=== PATIENT | female | born 1995 | race Caucasian/White ===

== ENCOUNTER → 2020-02-17 15:34 | Outpatient (CLI) | payer OTHER, BC, SELFPAY ==
--- NOTE | ~2020-02-17 | US_ITS ---
EXAMINATION: US pelvic complete w TV DATE: 02/17/2020 15:58 INDICATION: Left lower quadrant abdominal pain. Irregular periods. TECHNIQUE: Multiple transabdominal and endovaginal sonographic images of the pelvis were obtained. COMPARISON: None. FINDINGS: The uterus measures 6.8 x 3.7 x 3.6 cm. The endometrial complex measures 10 mm in thickness. The rig ht ovary measures 1.9 x 1.4 x 1.5 cm. The left ovary measures 3.1 x 1.9 x 2.4 cm. Vascular flow at diana th ovaries. There is no free fluid in the pelvis. IMPRESSION: 1. Normal pelvic ultrasound. Reviewed, dictated and finalized at location H. RAISER
== END ==
PROVIDERS: Visit Provider Obstetrics & Gynecology
DX: R10.2 Pelvic and perineal pain (principal)
CPT/HCPCS: 76830; 76856

== ENCOUNTER 2020-12-19 15:58 | Outpatient (CLI) | payer OTHER, BC, SELFPAY ==
--- NOTE | ~2020-12-19 | US_ITS ---
EXAMINATION: US venous doppler LE RT EXAM DATE: 12/19/2020 16:47 INDICATION: Right leg localized edema/swelling. . TECHNIQUE: Multiple grayscale, color flow and Doppler images of the right lower extremity deep venous system were obtained and reviewed. There is no prior study for comparison. FINDINGS: The right common femoral, femoral and profunda veins demonstrate normal color flow, respira tory variation, augmentation and compressibility. Compressibility, color flow confirmed within the r ight popliteal, posterior tibial, peroneal, and greater saphenous veins. IMPRESSION: 1. No right lower extremity deep venous thrombosis. Reviewed, dictated and finalized at location B.
== END 2020-12-19 15:59 | disposition home or self-care (01) ==
LOC: ANHIMG 16:04
PROVIDERS: PCP Family Medicine Sports Medicine; Visit Provider Obstetrics & Gynecology
DX: M79.89 Other specified soft tissue disorders (principal)
CPT/HCPCS: 93971

== ENCOUNTER 2021-01-04 20:25 | Outpatient (CLI) | payer OTHER, BC, SELFPAY ==
[2021-01-04 20:45] VITALS: BP 149/90; PULSE 94
[2021-01-04 21:00] VITALS: BP 130/84; PULSE 84
[2021-01-04 21:01] LABS: Basophils Percent Auto 0.3 % (0.2-1.2); Eosinophils Percent Auto 0.3 % (0-4.4); Hematocrit 33.9 % (37.0-47.0); Hemoglobin 11.2 g/dL (12.0-15.0); Immature Granulocyte Absolute 0.06 K/mm3 (0.00-0.031); Immature Granulocyte Percent A 0.7 % (0-0.5); Lymphocytes Absolute Auto 2.35 K/mm3 (0.9-3.2); Lymphocytes Percent Auto 26.9 % (18.3-44.2); Mean Corpuscular Hemoglobin 30.9 pg (26-34); Mean Corpuscular Volume 93.4 fl (80-100); Mean Platelet Volume 9.7 fl (7.4-10.4); Monocytes Absolute Auto 0.7 K/mm3 (0.1-0.6); Monocytes Percent Auto 7.4 % (2.6-8.5); Neutrophils Absolute Auto 5.6 K/mm3 (1.3-6.7); Neutrophils Percent Auto 64.4 % (45.5-73.1); Platelet Count Result 271 k/mm3 (150-375); Red Blood Count 3.63 M/mm3 (4.2-5.4); Red Cell Distribution Width 13.2 % (11.5-14.5); White Blood Count 8.7 K/mm3 (4.5-10.0)
[2021-01-04 21:06] LABS: Add Urine Microscopic? YES; Appearance Urine Cloudy (Clear); Bacteria Urine Trace /hpf; Bilirubin Urine Negative (Negative); Blood Urine Negative (Negative); Color Urine Straw (Yellow); Glucose Urine UA Negative (Negative); Ketones Urine Negative (Negative); Leukocyte Esterase Ur Negative LEU/UL (Negative); Mucus Urine Rare /lpf; Nitrate Urine Negative (Negative); Protein Urine Negative (Negative); RBC Urine 0-2 /hpf (0-2); Squamous Epithelial Cell Urine Few /hpf (Few); Urobilinogen Urine Negative mg/dL (<2.0); WBC Urine 0-3 /hpf
[2021-01-04 21:15] VITALS: BP 131/79; PULSE 82
[2021-01-04 21:15] LABS: Creatinine Urine 69.3 mg/dL; Total Protein Urine Random 16 mg/dL; Ur Ttl Prot Creatinine Ratio 0.23 mg/mg (0-0.20)
[2021-01-04 21:16] LABS: Alanine Aminotransferase 19 U/L (4-35); Albumin Level 3.8 g/dL (3.5-5.1); Alkaline Phosphatase 120 U/L (38-126); Anion Gap 9 mmol/L (8-16); Aspartate Amino Transferase 20 U/L (14-36); Bilirubin,Total 0.3 mg/dL (0.2-1.3); Blood Urea Nitrogen 10 mg/dL (7-17); Calcium 9.4 mg/dL (8.4-10.2); Carbon Dioxide 19 mmol/L (22-30); Chloride 107 mmol/L (98-107); Estimated Glomerular Filt Rate > 60; Glucose 85 mg/dL (65-110); Potassium 3.9 mmol/L (3.4-5.0); Sodium 135 mmol/L (137-145); Uric Acid 5.6 mg/dL (2.5-7.5)
== END 2021-01-04 21:30 | disposition home or self-care (01) ==
LOC: ANHOBOP 20:30 → ANHOBPP 20:31
PROVIDERS: Obstetrics & Gynecology; PCP Family Medicine Sports Medicine; Visit Provider Obstetrics & Gynecology
DX: O13.9 Gestational [pregnancy-induced] hypertension without significant proteinuria, unspecified trimester (principal)
CPT/HCPCS: 36415; 59025; 80053; 81001; 82570; 84156; 84550; 85025; 99199

== ENCOUNTER 2021-01-11 10:25 | Outpatient (RCR) | payer OTHER, BC, SELFPAY ==
[2020-11-28 17:23] VITALS: BP 124/74; PULSE 86
--- NOTE | 2020-11-28 18:26 | PC.NURSE ---
BPP 11/11.
[2020-12-07 11:56] VITALS: BP 116/67; PULSE 85
[2020-12-14 12:15] VITALS: BP 108/72; PULSE 87
[2020-12-21 12:39] VITALS: BP 107/54; PULSE 81
[2020-12-28 10:50] VITALS: BP 128/77; PULSE 76
--- NOTE | 2021-01-04 12:35 | PC.NURSE ---
Dr. Majano called regarding pt initial blood pressure and follow up blood pressures that were within normal limits. Pt given PIH handout and pt advised to return to OB or call Dr. Majano if any problems.
[2021-01-06 03:52] VITALS: BP 117/70; PULSE 75
--- NOTE | ~2021-01-11 | US_ITS ---
US OB BPP wo non-stress DATE: 11/28/2020 18:21 INDICATION: Small for gestational age. Elevated BMI TECHNIQUE: Real-time imaging and Doppler analysis COMPARISON: None FINDINGS: Live milner intrauterine gestation, fetus in longitudinal lie, vertex presentation. Feta l heart rate of 136 bpm. Posterior placenta. Subjectively normal amount of amniotic fluid BIOPHYSICAL PROFILE reported by oxygen equipment technician: breathin out of 2 movement: 2 out of 2 tone: 2 out of 2 Amniotic fluid pocket: 2 out of 2 Total score: 8 out of 8 IMPRESSION: Normal biophysical profile score of 8 out of 8 Reviewed, dictated and finalized at Location [facility]. Reviewed, dictated and finalized at location A.
[2021-01-11 11:09] VITALS: BP 144/83; PULSE 99
== END 2021-02-26 23:59 | disposition home or self-care (01) ==
LOC: ANHOBOP 10:25
PROVIDERS: Visit Provider Obstetrics & Gynecology
DX: O36.5930 Maternal care for other known or suspected poor fetal growth, third trimester, not applicable or unspecified (principal); O26.03 Excessive weight gain in pregnancy, third trimester; Z3A.32 32 weeks gestation of pregnancy
CPT/HCPCS: 59025; 76819

== ENCOUNTER 2021-01-11 11:45 | Inpatient (IN) | payer OTHER, BC, SELFPAY ==
[2021-01-11] VITALS (12 sets, daily range): BP systolic 111–139; BP diastolic 61–100; PULSE 72–101; TEMP 36.7–37.1; BMI 43.9
[2021-01-11 13:15] LABS: Basophils Percent Auto 0.4 % (0.2-1.2); Eosinophils Percent Auto 0.4 % (0-4.4); Hematocrit 36.3 % (37.0-47.0); Hemoglobin 12.2 g/dL (12.0-15.0); Immature Granulocyte Absolute 0.05 K/mm3 (0.00-0.031); Immature Granulocyte Percent A 0.6 % (0-0.5); Lymphocytes Absolute Auto 1.82 K/mm3 (0.9-3.2); Lymphocytes Percent Auto 22.2 % (18.3-44.2); Mean Corpuscular HGB Conc 33.6 g/dl (32-36); Mean Corpuscular Hemoglobin 31.3 pg (26-34); Mean Corpuscular Volume 93.1 fl (80-100); Mean Platelet Volume 9.7 fl (7.4-10.4); Monocytes Absolute Auto 0.5 K/mm3 (0.1-0.6); Monocytes Percent Auto 6.3 % (2.6-8.5); Neutrophils Absolute Auto 5.8 K/mm3 (1.3-6.7); Neutrophils Percent Auto 70.1 % (45.5-73.1); Platelet Count Result 251 k/mm3 (150-375); Red Cell Distribution Width 13.3 % (11.5-14.5); White Blood Count 8.2 K/mm3 (4.5-10.0)
[2021-01-11 13:28] LABS: Alanine Aminotransferase 18 U/L (4-35); Albumin Level 3.7 g/dL (3.5-5.1); Alkaline Phosphatase 140 U/L (38-126); Anion Gap 7 mmol/L (8-16); Aspartate Amino Transferase 22 U/L (14-36); Bilirubin,Total 0.2 mg/dL (0.2-1.3); Blood Urea Nitrogen 7 mg/dL (7-17); Calcium 8.9 mg/dL (8.4-10.2); Carbon Dioxide 20 mmol/L (22-30); Chloride 109 mmol/L (98-107); Estimated Glomerular Filt Rate > 60; Glucose 77 mg/dL (65-110); Sodium 136 mmol/L (137-145)
[2021-01-11] MEDS: DINOPROSTONE 10 MG VAG INSERT VAGINAL (14:10)
--- NOTE | 2021-01-11 14:20 | LDADM ---
This patient, Yesika Camara, was admitted to Labor/Delivery/Recovery 109 on 01/11/21 at 11:45. Plans for labor, pain management and were discussed with patient. Patient/family oriented to hospital policies and general routines including ID bracelet, bed and alarms, visiting hours, pain management, procedures, bathroom and other care routines, personal items, smoking policy, room service/diet and guest tray routines, security routines, and visiting hours. Patient/Family are encouraged to report perceived risks to care and to ask questions if they do not understand what they are told or what they should do. See OBIX for further documentation.
--- NOTE | 2021-01-11 15:03 | PM.IMHP ---
H&P: HPI History of Present Illness Date/Time: 01/11/21 14:50 Yesika is a 25yo @ 38.4wks (LEN 01/21/21) who presents for IOL due to newly diagnosed gestational hypertension. She has been undergoing ANT due to hypothyroidism/obesity and the last two weeks has had mild range BPs. She denies HEADLEY, vision changes, CP, SOB. She reports good movement. No ctx, vb, or LOF. Her is complicated by: - Hypothyroidism on levothyroxine 25mcg - Gestational hypertension; has been taking ASA 81mg daily - PCOS on metformin - Elevated glucola, normal 3hr OGTT - Obesity; BMI 44 - Inadequate weight gain in due to NVOP - Anxiety and depression - Mild anemia on iron daily - CMV non-immune Chief Complaint: elevated blood pressure Review of Systems Review of Systems: All systems reviewed & are unremarkable except as noted in HPI and below (HPI) PMFSH Family History Family History Mother Hypercholesteremia Hypertension Social History Social History Smoking status: Never smoker Second hand tobacco smoke exposure: No Substance use: never Spiritual care concerns: No Meds Home Medications and Allergies Home Medications Medication Instructions Recorded Confirmed Type PNV cmb#95-ferrous fumarate-FA 1 tablet PO DAILY 12/22/20 12/22/20 History [] aspirin 81 mg PO DAILY 12/22/20 12/22/20 History levothyroxine [Synthroid] 25 mcg PO DAILY 12/22/20 12/22/20 History metformin 1,000 mg PO DAILY 12/22/20 12/22/20 History Allergies Allergy/AdvReac Type Severity Reaction Status Date / Time No Known Allergies Allergy Verified 12/22/20 14:29 Vital Signs Vital Signs - 24 hr 01/11/21 12:52 01/11/21 13:01 01/11/21 13:31 Pulse Rate 101 H 90 82 Blood Pressure 139/94 H 134/85 136/85 01/11/21 14:01 01/11/21 14:31 Pulse Rate 92 77 Blood Pressure 111/78 128/75 Exam Const: General: cooperative, comfortable and no acute distress Nutritional Appearance: obese Resp: Effort & Inspection: normal respiratory effort Cardio: Rate: regular rate GI: Inspection: normal to inspection GI Palp: No abdominal tenderness and Yes Soft to palpation : Other: FHT's: 130's/ mod patrick/ + accels/ no decels- cat 1 [place]: irritability Cervix:FT/50/-3 Membranes: intact Presentation: cephalic Skin: General skin exam: normal color Neuro: General: patient oriented x3 Extrem: General: normal to inspection Psych: Appearance: grossly normal Affect: normal affect Attitude: cooperative H&P: Results Labs Labs: Short CBC 01/11/21 Range/Units 13:04 WBC 8.2 (4.5-10.0) K/mm3 Hgb 12.2 (12.0-15.0) g/dL Hct 36.3 L (37.0-47.0) % Plt Count 251 (150-375) k/mm3 BMP 01/11/21 13:04 Sodium 136 L Potassium 4.0 Chloride 109 H Carbon Dioxide 20 L BUN 7 Creatinine 0.60 L Glucose 77 Calcium 8.9 Liver Function 01/11/21 Range/Units 13:04 Total Bilirubin 0.2 (0.2-1.3) mg/dL AST 22 (14-36) U/L ALT 18 (4-35) U/L Alkaline Phosphatase 140 H (38-126) U/L Albumin 3.7 (3.5-5.1) g/dL Assessment and Plan Assessment and plan (1) Gestational hypertension affecting first : Code(s): O13.9 - Gestational [-induced] hypertension without significant proteinuria, unspecified trimester Status: Acute Additional Plan - Admit to L&D for IOL due to GHTN after 37wga - Cervidil now - AROM/Pitocin in AM - Continuous monitoring; currently reassuring - Anesthesia consult PRN pain - GBS negative
--- NOTE | 2021-01-11 15:04 | WPDHPUPDATE1 ---
History and Physical Update Update Date/Time: 01/11/21 15:04 History and Physical has been reviewed, including an updated exam of the patient. There are NO changes in the patient's condition. Risks, benefits, and alternatives have been discussed and questions answered. Patient agrees to proceed with procedure.
--- NOTE | 2021-01-11 17:34 | WPDANESEPP ---
Anes - Eval Pre Procedure Procedure: Labor epidural Date/Time: 01/11/21 17:34 Surgeon: Melecio Preop Diagnosis: Abd pain with contractions Pre Op Diagnosis: Induction of Labor Patient Data Age: 25 Gender: F Height: 1.7 m Weight: 127.3 kg Last Vital Signs Pulse 81 01/11/21 16:31 BP 117/63 01/11/21 16:31 Allergies Allergy/AdvReac Type Severity Reaction Status Date / Time No Known Allergies Allergy Verified 12/22/20 14:29 Home Medications Medication Instructions Recorded Confirmed Type PNV cmb#95-ferrous fumarate-FA 1 tablet PO DAILY 12/22/20 12/22/20 History [] aspirin 81 mg PO DAILY 12/22/20 12/22/20 History levothyroxine [Synthroid] 25 mcg PO DAILY 12/22/20 12/22/20 History metformin 1,000 mg PO DAILY 12/22/20 12/22/20 History Laboratory Tests 01/11/21 01/11/21 01/11/21 13:04 13:04 13:04 WBC 8.2 K/mm3 K/mm3 (4.5-10.0) RBC 3.90 M/mm3 L M/mm3 (4.2-5.4) Hgb 12.2 g/dL g/dL (12.0-15.0) Hct 36.3 % L % (37.0-47.0) MCV 93.1 fl fl (80-100) MCH 31.3 pg pg (26-34) MCHC 33.6 g/dl g/dl (32-36) RDW 13.3 % % (11.5-14.5) Plt Count 251 k/mm3 k/mm3 (150-375) MPV 9.7 fl fl (7.4-10.4) Immature Gran % (Auto) 0.6 % H % (0-0.5) Neut % (Auto) 70.1 % % (45.5-73.1) Lymph % (Auto) 22.2 % % (18.3-44.2) [place] % (Auto) 6.3 % % (2.6-8.5) Eos % (Auto) 0.4 % % (0-4.4) Baso % (Auto) 0.4 % % (0.2-1.2) Lymph # (Auto) 1.82 K/mm3 K/mm3 (0.9-3.2) [place] # (Auto) 0.5 K/mm3 K/mm3 (0.1-0.6) Eos # (Auto) 0.0 K/mm3 K/mm3 (0-0.3) Baso # (Auto) 0.0 K/mm3 K/mm3 (0.0-0.1) Abs Immat Gran (auto) 0.05 K/mm3 H K/mm3 (0.00-0.031) Absolute Neuts (auto) 5.8 K/mm3 K/mm3 (1.3-6.7) Absolute Nucleated RBC 0.0 K/mm3 K/mm3 (0.0-0.012) Nucleated RBC % 0.0 % % (0.0-0.2) Sodium Potassium Chloride Carbon Dioxide Anion Gap BUN Creatinine Estim Creat Clear Calc Estimated GFR Glucose Calcium Total Bilirubin AST ALT Alkaline Phosphatase Total Protein Albumin RPR Pending Blood Type A Positive Antibody Screen Negative 01/11/21 13:04 WBC RBC Hgb Hct MCV MCH MCHC RDW Plt Count MPV Immature Gran % (Auto) Neut % (Auto) Lymph % (Auto) [place] % (Auto) Eos % (Auto) Baso % (Auto) Lymph # (Auto) [place] # (Auto) Eos # (Auto) Baso # (Auto) Abs Immat Gran (auto) Absolute Neuts (auto) Absolute Nucleated RBC Nucleated RBC % Sodium 136 mmol/L L mmol/L (137-145) Potassium 4.0 mmol/L mmol/L (3.4-5.0) Chloride 109 mmol/L H mmol/L (98-107) Carbon Dioxide 20 mmol/L L mmol/L (22-30) Anion Gap 7 mmol/L L mmol/L (8-16) BUN 7 mg/dL mg/dL (7-17) Creatinine 0.60 mg/dL L mg/dL (0.7-1.0) Estim Creat Clear Calc Not Reportable Estimated GFR > 60 (59 - ) Glucose 77 mg/dL mg/dL (65-110) Calcium 8.9 mg/dL mg/dL (8.4-10.2) Total Bilirubin 0.2 mg/dL mg/dL (0.2-1.3) AST 22 U/L U/L (14-36) ALT 18 U/L U/L (4-35) Alkaline Phosphatase 140 U/L H U/L (38-126) Total Protein 7.0 g/dL g/dL (6.3-8.2) Albumin 3.7 g/dL g/dL (3.5-5.1) RPR Blood Type Antibody Screen Patient hx anesthesia problems: none Family hx anesthesia problems: none Results Review: All pre-operative results and documents have been reviewed as part of the pre-operative evaluation. COUNTS INCLUDE 234 BEDS AT THE [facility] Past Medical History Medical His
[2021-01-12] VITALS (266 sets, daily range): BP systolic 90–183; BP diastolic 39–152; PULSE 56–251; TEMP 36.3–37.8; O2SAT 72–100
[2021-01-12] MEDS: LACTATED RINGERS 1,000 ML 125 ML IV CONT ×4 (04:46→20:41)
--- NOTE | 2021-01-12 09:14 | PM.OBPNLAB ---
Pain Control Date/time seen: 01/12/21 09:14 Pain control: epidural Pelvic Exam Dilation (cm): 2 Effacement (%): 50 station: -2 Amniotic membrane status: Ruptured (AROM, thick mec @ 0905) Contractions Monitor mode: Internal Contraction frequency: 2 (-3) Contraction pattern: Regular Contraction intensity: Moderate Intrauterine tone measurement: 40 Status status: Category ll Comments: overnihgt, had occasional late decelerations; occasional episodes of minimal variability (not together)-- but there was concern for tachysystole w/ the cervidil IUPC placed on this exam and pt jayla adequately Assessment and Plan Assessment: induction ongoing Plan: continuous present management Comments: - monitoring heart tones closely - low thresh hold for and pt aware - currently contractions appear to be adequate with the IUPC; pitocin has not been started-- if contractions space out and FHT reassuring, will start low dose pitocin
[2021-01-12] MEDS: SODIUM CHLORIDE 0.9% IV 300 ML 600 ML I-UTERINE (09:43)
[2021-01-12] MEDS: OXYTOCIN 30 UNITS/NS 500 ML 30 UNITS/500 ML BAG IV CONT (12:20)
--- NOTE | 2021-01-12 12:22 | PC.NURSE ---
Dr. Majano confirmed going up by 1 -2 m/u as needed to achieved adequate MVU's
--- NOTE | 2021-01-12 19:15 | PM.OBPNLAB ---
Pain Control Date/time seen: 01/12/21 19:15 Pain control: epidural Pelvic Exam Dilation (cm): 6 Effacement (%): 80 station: -2 Amniotic membrane status: Ruptured (AROM, thick mec @ 0905) Contractions Monitor mode: Internal Contraction frequency: 2 Contraction pattern: Regular Contraction intensity: Moderate Status status: Category ll Comments: occasional late, but good variability-- overall reassuring Assessment and Plan Pitocin rate (mU/min): 8 Assessment: active labor Plan: continuous present management
[2021-01-13] VITALS (57 sets, daily range): BP systolic 120–151; BP diastolic 64–93; PULSE 83–126; RESP 16–18; TEMP 35.7–37.5; O2SAT 95–100
--- NOTE | 2021-01-13 01:37 | PM.OBPRVD ---
OB - Delivery Note Procedure Delivery date: 01/13/21 events: Induced HTN and Labor Induction Intrapartal events: Deceleration Induction method: per cervidil protocol Delivery augmentation: rupture of membranes and pitocin Delivery monitor: external FHT and internal uterine Route of delivery: Laceration Description: Perineal - 1st Degree and Labial (left) Delivery repair: vicryl Specimen: Yes Quantitative Blood Loss (ml): 300 Anesthesia type: Epidural Disposition: floor [place] Baby Date of : 01/13/21 Time of : 01:01 Weeks of gestation at delivery: 38 (.6) Infant gender: Male Weight (pounds): 6 Weight (ounces): 13 presentation: vertex position: Right Occiput Anterior Placenta delivery description: Expressed cord vessel description: 3 Vessels, Nuchal Cord (x2), Loose and Delayed Cord Clamping score one minute: 8 score five minutes: 9 Narrative: Yesika progressed to complete dilation with desire to push. She pushed for approximately 1 hour with good maternal effort. She delivered the head over intact perineum. Nuchal cord x2 was noted, but loose and delivered through. The was immediately placed skin to skin with the pediatric nurse was present. He had spontaneous cry. His mouth was bulb suctioned. Delayed cord clamping was performed. The umbilical cord was then clamped and cut. A segment of the cord was collected for cord gases. The remaining cord blood was collected for typing. With Pitocin running and gentle downward traction on the cord, the placenta delivered without complications. Excessive membranes were noted therefore a bimanual massage was performed with a sweep to verify all membranes were removed. Patient was examined and found to have a first-degree perineal laceration extending into the left labia. The perineal laceration was repaired in the normal fashion using 2-0 Vicryl. The labial laceration was also repaired in the normal fashion using 2-0 Vicryl. Good fundal tone and minimal bleeding were noted at the end of the case. Sponge, lap, instrument, and needle counts were correct at the end. Mom and baby were left bonding in the birthing suite in stable condition.
[2021-01-13] MEDS: OXYTOCIN 30 UNITS/NS 500 ML 30 UNITS/500 ML BAG 125 UNITS IV CONT (01:45)
[2021-01-13] MEDS: ACETAMINOPHEN 325 MG TABLET 650 MG PO (04:50)
[2021-01-13] MEDS: LEVOTHYROXINE SODIUM 25 MCG TABLET PO (08:37)
[2021-01-13] MEDS: MULTIVIT/MIN/PREN/FOL AC/IRON TABLET 1 TAB PO (08:37)
[2021-01-13] MEDS: IBUPROFEN 600 MG TABLET PO ×2 (08:38→15:04)
[2021-01-13] MEDS: LANOLIN (LANSINOH) 7.5 GM CREAM 1 APPLIC TOPICAL (08:38)
[2021-01-13] MEDS: metFORMIN HCL 500 MG TABLET 1000 MG PO (20:57)
[2021-01-13] MEDS: DOCUSATE SODIUM 100 MG CAPSULE PO (20:57)
[2021-01-14] VITALS (7 sets, daily range): BP systolic 101–140; BP diastolic 61–90; PULSE 72–85; RESP 16–18; TEMP 36.3–36.6; O2SAT 99–100
[2021-01-14] MEDS: IBUPROFEN 600 MG TABLET PO ×4 (01:08→22:57)
[2021-01-14 05:49] LABS: Hematocrit 28.8 % (37.0-47.0); Hemoglobin 9.4 g/dL (12.0-15.0)
[2021-01-14 06:58] LABS: Rapid Plasma Reagin Non-Reactive (NonReactive)
[2021-01-14] MEDS: LEVOTHYROXINE SODIUM 25 MCG TABLET PO (07:31)
[2021-01-14] MEDS: DOCUSATE SODIUM 100 MG CAPSULE PO ×2 (07:34→19:31)
[2021-01-14] MEDS: POLYSACCHARIDE IRON COMPLEX 150 MG CAPSULE PO ×2 (07:34→19:31)
[2021-01-14] MEDS: MULTIVIT/MIN/PREN/FOL AC/IRON TABLET 1 TAB PO (07:42)
--- NOTE | 2021-01-14 09:40 | PC.NURSE ---
Mother called out for assist with feeding. Mother reports infant is sleepy and makes eager attempts to latch with good bursts of nursing. Mother used a nipple shield since . Mother has a bruise to right nipple/areola from possible shallow latch using shield. Mother is supplementing after each feeding followed with 15 minutes of pumping. Nipple care of lanolin after feeding and showering and before pumping, with use of warm compresses a few times per day. is able to freely thrust tongue past gum ridge and flange both lips. Skin is intact on both nipples. Reviewed feeding cues, frequencies, duration of feedings, feeding elimination flow sheet, and signs of adequate intake. Demonstrated stimulation techniques to wake for feeding. Assisted with infant to breast. Reviewed positioning/alignment in cross cradle, holding breast in ?U? hold and guided asymmetrical latch on. Reviewed rational for each. was able latch correctly without nipple shield. Infant nursed eagerly with steady draws and occasional swallowing noted for bursts followed with long pausing. Reviewed signs of a correct latch, effective nursing and suck swallow ratio. was able to maintain latch without discomfort to mother. Suggested mother stimulate while feeding to increase stimulate, increase intake and to assist with maintaining deep latch. Demonstrated how to adjust latch more deeply while feeding if needed. Discussed nipple shield use, reviewed nipple shield precautions and possible complications. Instructions given on application and cleaning of shield. Discussed the need to continue regular pumping until milk supply is well established and is able to gain weight without supplementation, if infant continues to nurse with the shield. Patient verbalizes understanding. Discussed the difference of effective vs ineffective feeding. Reviewed infant is latching with good burst of suckling, he is feeding consistently with adequate milk transfer at this time mother does not need to supplement after . Mother states she will continue to pump after feedings and will discontinue supplement if appears satisfied with exclusive . Instructed mother to call out for RN assistance if she is unable to latch for feeding or she has discomfort with nursing. Instructed feeding should be initiated three hours from start of last feeding or if feeding cues are noted before. Mother voiced understanding of information shared.
--- NOTE | 2021-01-14 10:05 | PC.NURSE ---
Mother called out to switch breasts at this feeding. Assisted with to breast. Reviewed positioning/alignment in cross cradle, holding breast in ?U? hold and guided asymmetrical latch on. Reviewed rational for each. Infant was able latch correctly without nipple shield. nursed eagerly with steady draws and occasional swallowing noted for bursts followed with long pausing. Reviewed signs of a correct latch, effective nursing and suck swallow ratio. was able to maintain latch without discomfort to mother. Suggested mother stimulate while feeding to increase stimulate, increase intake and to assist with maintaining deep latch. Demonstrated how to adjust latch more deeply while feeding if needed.
--- NOTE | 2021-01-14 10:15 | P.PNOB_ITS ---
OB - PN: Subj Subjective Date/time seen: 01/14/21 10:15 PP#1 Yesika reports doing well today. She reports her bleeding is very light. Her laceration is mildly tender, but taking the PO meds. She has tolerated regular diet, voided, passed gas, and ambulated. She is breast feeding. She would like her son circumcised. She has had some mild range BP's overnight; no CP, SOB, HEADLEY, or vision changes. No fever, chills, dizziness, N/V, or palpitations. OB - PN: Obj Data Labs CBC & Chem 7: 01/14/21 05:42 01/11/21 13:04 Labs: Laboratory Results - last 24 hr 01/11/21 01/14/21 13:04 05:42 Hgb 9.4 L Hct 28.8 L RPR Non-reactive OB - PN A/P Assessment and Plan (1) Gestational hypertension affecting first : Code(s): O13.9 - Gestational [-induced] hypertension without significant protein uria, unspecified trimester Status: Acute (2) (normal spontaneous vaginal delivery): Code(s): O80 - Encounter for full-term uncomplicated delivery Status: Acute Plan day: 1 Plan: routine care Comments: - Will monitor BP's today/tonight-- possible discharge home tomorrow - Pelvic rest; take meds as prescribed - ER return precautions: fever, HTN, bleeding, n/v/abd pain - F/u in 2wks for BP check Time Spent With Patient Time: Total time spent is greater than 50% in coordination of care (as documented) at patient's floor/unit and/or counseling patient: Review of Systems Review of Systems: All systems reviewed & are unremarkable except as noted in HPI and below (HPI) Exam Const: General: cooperative, comfortable and no acute distress Nutritional Appearance: obese Resp: Effort & Inspection: normal respiratory effort Auscultation: clear to auscultation bilaterally Cardio: Rate: regular rate GI: Inspection: normal to inspection and non-distended GI Palp: No abdominal tenderness and Yes Soft to palpation : Other: fundus firm Skin: General skin exam: normal color Neuro: General: patient oriented x3 Extrem: General: normal to inspection Psych: Appearance: grossly normal Affect: normal affect Attitude: cooperative
--- NOTE | 2021-01-14 11:35 | PC.NURSE ---
Mother called out for assist with this feeding. Assisted with to breast. Reviewed positioning/alignment in cross cradle, holding breast in ?U? hold and guided asymmetrical latch on. Reviewed rational for each. was able latch correctly without nipple shield. Infant nursed eagerly with steady draws and occasional swallowing noted for bursts followed with long pausing. Reviewed signs of a correct latch, effective nursing and suck swallow ratio. Infant was able to maintain latch without discomfort to mother. Suggested mother stimulate while feeding to increase stimulate, increase intake and to assist with maintaining deep latch. Demonstrated how to adjust latch more deeply while feeding if needed.
[2021-01-14] MEDS: ACETAMINOPHEN 325 MG TABLET 650 MG PO ×2 (16:05→22:57)
[2021-01-14] MEDS: metFORMIN HCL 500 MG TABLET 1000 MG PO (19:32)
[2021-01-15 04:00] VITALS: BP 103/64; PULSE 77; RESP 18; TEMP 36.6
[2021-01-15] MEDS: ACETAMINOPHEN 325 MG TABLET 650 MG PO ×2 (07:03→14:03)
[2021-01-15] MEDS: LEVOTHYROXINE SODIUM 25 MCG TABLET PO (07:04)
[2021-01-15] MEDS: IBUPROFEN 600 MG TABLET PO ×2 (07:04→14:04)
[2021-01-15] MEDS: MULTIVIT/MIN/PREN/FOL AC/IRON TABLET 1 TAB PO (07:04)
[2021-01-15] MEDS: POLYSACCHARIDE IRON COMPLEX 150 MG CAPSULE PO (07:05)
[2021-01-15 07:45] VITALS: BP 131/81; PULSE 81; RESP 18; TEMP 36.9; O2SAT 100
--- NOTE | 2021-01-15 09:10 | PC.NURSE ---
Consult with pt., observed mother is able to independently latch with appropriate positioning/alignment. Mother has a bruise to left areola from incorrect latch during the night, nipple care reviewed. Infant eagerly latches on first attempt with long rhythmical draws and frequent swallowing noted. She denies any nipple discomfort, is feeding as required and waking to feed if needed. Infant has had at least 8 effective feedings in the past 24 hours, and is currently meeting outcomes for weight, output, jaundice and feeding frequencies. Mother states she feels confident to continue effective at home, however, she will supplement at times if she feels is not satisfied after . Reviewed transition to breast milk, signs of adequate intake, and engorgement/relief. Instructed to call ICP if intake/output less than required. Reviewed regular medications mother is taking. Information provided per [place]. Reviewed community resources on the [facility] website and in the Mom/Baby guide. Information on outpatient services provided. Mother has no further questions at this time. Instructed feeding should be initiated three hours from start of last feeding or if feeding cues are noted before until seen by ICP. Mother voiced understanding of information shared.
[2021-01-16 10:56] VITALS: BP 147/86; PULSE 82; RESP 20; TEMP 37; O2SAT 100
--- NOTE | 2021-01-16 20:37 | PM.OBDSVD ---
DS: Admitting Diagnosis Discharge Date 01/15/21 Admitting Diagnosis Gestational hypertension DS: Discharge Diagnosis Discharge Diagnosis (1) (normal spontaneous vaginal delivery): Code(s): O80 - Encounter for full-term uncomplicated delivery Status: Acute (2) Gestational hypertension affecting first : Code(s): O13.9 - Gestational [-induced] hypertension without significant proteinuria, unspecified trimester Status: Acute OB - DS: Summary OB Procedures : NST and Ultrasound OB Procedures Intrapartum: Spontaneous Vag Delivery OB Procedures: : None Peripartum Data Delivery Method: Natural Vaginal Laceration Description: Perineal - 2nd Degree complications: none 1: Gender: Male Disposition of : home Status at Discharge Functional status at discharge: independent ambulation Overall status at discharge: patient is back to baseline Time Spent with Patient Time attestation: Total time spent providing and/or coordinating discharge services: Time spent: Less than 30 minutes Exam Const: General: cooperative, comfortable and no acute distress Nutritional Appearance: obese Resp: Effort & Inspection: normal respiratory effort Auscultation: clear to auscultation bilaterally Cardio: Rate: regular rate GI: Inspection: non-distended GI Palp: No abdominal tenderness and Yes Soft to palpation Auscultation: normal bowel sounds : Other: fundus firm Skin: General skin exam: normal color Neuro: General: patient oriented x3 Extrem: General: normal to inspection Psych: Appearance: grossly normal Affect: normal affect Attitude: cooperative DS: Data Data Completed and Pending Pending studies at discharge: Pending at discharge 01/13/21 01:06 Surgical [PTH] Routine Discharge Plan Discharge Attending physician on discharge: Mel Majano Discharging Clinician: Mel Majano Anticipated Discharge Date/Time: 01/15/21 08:00 Patient Disposition: Home, Self-Care Activity: may shower and pelvic rest Diet: regular Discharge Instructions: Education: Mom and Baby Guide Given to: Mother Follow-Up: Call your delivering provider's office for an appointment to be seen in: 2 weeks Mom and baby should come to the [facility] for the follow-up appointment. Appointment Date/Time: Saturday, January 16, 2021 at 10:00 am Call [phone] if you are unable to keep your appointment time. BREAST CARE: * Wear a snug supportive bra. * For engorgement discomfort: Breast Feeding: * Apply warm moist washcloths * Express milk as needed to relieve engorgement * Wear loose clothing Bottle Feeding: * May apply ice packs * For sore nipples: * Identify correct latch-on * Apply warm moist washcloths before and after nursing * Air dry nipples after nursing * May apply Lansinoh cream to nipples EPISIOTOMY/PERINEAL CARE: * Until bleeding stops, use your antonia bottle after urinating * Change your pad frequently throughout the day * You may take sitz baths several times a day (fill your bathtub with warm water and soak for 20 minutes.) Do NOT bathe in the water * No tub baths until seen by your physician - You may shower ACTIVITY: * Rest as much as possible. * Do not exercise or lift anything heavier than your baby (such as laundry or other children.) * Avoid stairs or driving as much as possible. * Do not put anything into the vagina. No douching, tampons, or sexual activity until seen by physician. NOTIFY PHYSICIAN IF YOU HAVE ANY QUESTIONS OR IF ANY OF THE FOLLOWING SYMPTOMS OCCUR: * If your episiotomy or incision becomes red, swollen, or more painful than what you have experienced in the hospital. * If your vaginal bleeding becomes foul smelling. * If your vaginal bleedi
== END 2021-01-15 14:57 | disposition home or self-care (01) | DRG 807 ==
LOC: ANHLDR 12:22 → ANHOB2 01-13 05:22
PROVIDERS: Admitting Provider Obstetrics & Gynecology; PCP Family Medicine Sports Medicine; Visit Provider Obstetrics & Gynecology
DX: O13.4 Gestational [pregnancy-induced] hypertension without significant proteinuria, complicating childbirth (principal); Z37.0 Single live birth; O70.0 First degree perineal laceration during delivery; O99.214 Obesity complicating childbirth; E66.9 Obesity, unspecified; O99.284 Endocrine, nutritional and metabolic diseases complicating childbirth; E03.9 Hypothyroidism, unspecified; E28.2 Polycystic ovarian syndrome; O99.02 Anemia complicating childbirth; O69.81X0 Labor and delivery complicated by cord around neck, without compression, not applicable or unspecified; O76 Abnormality in fetal heart rate and rhythm complicating labor and delivery; O77.0 Labor and delivery complicated by meconium in amniotic fluid; Z3A.38 38 weeks gestation of pregnancy
CPT/HCPCS: 36415; 59025; 80053; 85014; 85018; 85025; 86592; 86850; 86900; 86901; 88307; A9270; J2590; J2795; J7030; J7120

== ENCOUNTER 2021-01-21 11:52 | Outpatient (CLI) | payer OTHER, BC, SELFPAY ==
--- NOTE | ~2021-01-21 | US_ITS ---
EXAMINATION: US venous doppler LE RT DATE: 01/21/2021 12:29 INDICATION: Right lower limb swelling and pain TECHNIQUE: Grayscale ultrasound images without and with compression and Doppler ultrasound images of the right lower extremity veins were obtained. COMPARISON: None. FINDINGS: The visualized portions of right common femoral vein, profunda (deep) femoral vein, femoral vein, pop liteal vein, peroneal trunk, posterior tibial veins, peroneal veins, gastrocnemius vein and greater s aphenous vein outflow are patent. IMPRESSION: 1. No deep venous thrombosis in the right lower limb. Reviewed, dictated and finalized at location A.
== END 2021-01-21 11:53 | disposition home or self-care (01) ==
LOC: ANHIMG 11:58
PROVIDERS: PCP Family Medicine Sports Medicine; Visit Provider Obstetrics & Gynecology
DX: R22.41 Localized swelling, mass and lump, right lower limb (principal)
CPT/HCPCS: 93971

== ENCOUNTER 2021-02-01 10:45 | Outpatient (RCR) | payer OTHER, BC, SELFPAY ==
--- NOTE | 2021-02-01 11:00 | PC.NURSE ---
IN 1000 OUT 1050 HISTORY: Pt. delivered at [facility] at 38 weeks. had no complications after delivery. Mother had no complications after delivery. (Large EBL, severe pain, return to surgery, emotional issues) Mother and discharged on a feeding plan with pumping and supplementation after each feeding due to ineffective feeding and nipple shield use. Infant is now 19 days old. Infant appears to be well cared for. last seen/will be seen by ICP at 2 weeks. Mother reports: Currently at 6-8 wets per day and 2-4 yellow seedy stools per day. weight:6#13 Discharge weight: 6#7 Last Weight:7#5 at ICP She was given a nipple shield for latch early, within the first few feeding, due to latch issues. Mother reports flat nipple and shield assisted with deeper latch. Mother discontinued shield use one at home, at about 1 week. Mother reports she was able to latch without issues for a few days then began with nipple pain, mother reports a burning sensation, and noticed nipples were white and would have severe stinging after feeding. Mother states pain begin within a few minutes of nursing. Mother began pumping and bottle feeding the last 24 hours due to pain. Mother has minimal tenderness with pumping, she is pumping 2-3 oz every 2-3 hours, using minimal formula. Mother wishes: Return infant to breast without nipple pain. OBSERVATION: Tongue is able to move tongue freely past gum ridge, both lips flange easily. Mother has everted nipples with skin intact slight redness, no blisters, scabbing or abrasions noted. Mother puts to breast in cradle positioning, infant eagerly latching with a shallow latch with bottom lip rolled in, mother reports discomfort. Latch released. Mother's nipple appeared rounded on top and flattened to the bottom with a pinch ridge to center. Reviewed positioning/alignment in cross cradle, holding breast in ?U? hold and guided asymmetrical latch on. Reviewed rational for each. Infant able to latch correctly within a few attempts. Demonstrated how to roll out bottom lip while feeding. Infant nursed eagerly with steady draws and frequent swallowing noted, some pausing noted. Reviewed signs of a correct latch, effective nursing and suck swallow ratio. Suggested mother stimulate while feeding to increase stimulation for milk supply, for increased intake and to assist with maintaining deep latch. Infant would slip to shallow latch causing tenderness. Demonstrated how to adjust latch more deeply while feeding if needed. Mother reports she can feel the difference in latch with no tenderness. Mother independently switched to other breast in cross cradle with deep latch, with minimal assist. Observed mother feed for 20 minutes with no sign of pain. Once infant released latch, mother did not report the stinging pain she has had in the past. Discussed a shallow latch can cause blanching and pain with and after feeding. Nipple care reviewed of lanolin after feedings, warm compresses as needed, gel pads provided and reviewed care and cleaning. PLAN: Mother will follow above feeding plan for deep latch and correcting latch if she has discomfort. Mother will call with further questions or concerns. Follow up phone call scheduled for 02-04-2021.
== END 2021-04-18 13:57 | disposition home or self-care (01) ==
LOC: ANHOBOP 10:45
PROVIDERS: PCP Family Medicine Sports Medicine; Visit Provider Obstetrics & Gynecology
DX: Z39.1 Encounter for care and examination of lactating mother (principal)
CPT/HCPCS: 99212; G0463

== ENCOUNTER 2023-01-21 14:46 | Outpatient (CLI) | payer OTHER, BC, SELFPAY ==
--- NOTE | ~2023-01-21 | US_ITS ---
EXAMINATION: US OB /maternal detail DATE: 01/21/2023 15:19 INDICATION: Encounter for supervision of normal . TECHNIQUE: Real-time ultrasound of the pelvis was performed. COMPARISON: Ultrasound 11/10/2022 FINDINGS: There is a single living fetus in vertex presentation. The placenta is posterior, 7.9 cm from the ce rvix. The cervical length is 3.5 cm on transabdominal images, which is normal. heart rate is 14 1 beats per minute (bpm). The amniotic fluid volume is subjectively normal. The following biometric data were obtained: Biparietal diameter (BPD): 4.9 cm; head circumference (HC): 17.4 cm; abdominal circumference (AC): 15 .0 cm; femur length (FL): 3.3 cm. These measurements are concordant. Estimated weight is 247 g +/- 52 g, which correlates with the 48th percentile when 06/08/23 is us ed as estimated date of delivery. As single measurements, these parameters are each equal to the following estimated gestational ages: BPD: 20 weeks 6 days. HC: 19 weeks 6 days. AC: 20 weeks 2 days. FL: 20 weeks 3 days. estimated gestational age based solely on measurements from this exam is 20 weeks 3 days +/- 1 weeks 3 days. The cerebral ventricles, cerebellum, cisterna magna, nuchal fold, lip, and visualized portions of the spine are normal. The heart is normal. The diaphragm, stomach, kidneys, and bladder are normal. Ther e are two umbilical arteries to yield a 3-vessel cord. The cord insertion is normal. IMPRESSION: 1. Single living fetus in vertex presentation. 2. Estimated weight is 247 g +/- 52 g, which correlates with the 48th percentile when 06/08/23 i s used as estimated date of delivery. 3. Normal anatomic survey. Reviewed, dictated and finalized at location E. IMPRESSION: 1. Single living fetus in vertex presentation. 2. Estimated weight is 247 g +/- 52 g, which correlates with the 48th pe rcentile when 06/08/23 is used as estimated date of delivery. 3. Normal anatomic survey.
== END 2023-01-21 14:47 ==
PROVIDERS: PCP Obstetrics & Gynecology; Visit Provider Obstetrics & Gynecology
DX: Z34.90 Encounter for supervision of normal pregnancy, unspecified, unspecified trimester (principal)
CPT/HCPCS: 76805

== ENCOUNTER 2023-05-27 10:28 | Outpatient (RCR) | payer OTHER, SELFPAY ==
[2023-04-22 11:14] VITALS: BP 118/63; PULSE 81
[2023-04-29 16:26] VITALS: BP 117/63; PULSE 76
[2023-05-07 10:28] VITALS: BP 105/75; PULSE 81
[2023-05-14 11:16] VITALS: BP 105/66; PULSE 86
[2023-05-14 11:17] VITALS: BP 105/66; PULSE 83
[2023-05-21 12:10] VITALS: BP 121/66; PULSE 80
--- NOTE | ~2023-05-27 | US_ITS ---
EXAMINATION: US OB BPP wo non-stress DATE: 05/27/2023 11:59 INDICATION: COVID 19 complications during third trimester TECHNIQUE: Real-time pelvic ultrasound was performed. The interpreting radiologist was not present fo r the study. COMPARISON: 05/21/2023 FINDINGS: There is a single living fetus in vertex presentation. The placenta is fundal/left. heart rate is 133 beats per minute (bpm). Biophysical profile performed by the technologist: breathing (30 sec sustained breathing in 30 minutes): 2 out of 2 movement (3 gross body movements in 30 minutes): 2 out of 2 tone (one episode of keujand-vfskdemiq-wjjqbty limb movement): 2 out of 2 Amniotic fluid pocket (2 cm): 2 out of 2 Total score: 8 out of 8 IMPRESSION: 1. Single living fetus in vertex presentation. 2. Biophysical profile 8 out of 8. Reviewed, dictated and finalized at location B. ERER
--- NOTE | ~2023-05-27 | US_ITS ---
EXAMINATION: US OB BPP wo non-stress DATE: 05/14/2023 11:49 INDICATION: well-being assessment during third trimester TECHNIQUE: Real-time pelvic ultrasound was performed. The interpreting radiologist was not present fo r the study. COMPARISON: None. FINDINGS: There is a single living fetus in vertex presentation. The placenta is fundal/maternal left. he art rate is 143 beats per minute (bpm). The amniotic fluid index is 10.9 cm which is normal (normal r jennifer: 7.7 cm to 24.9 cm). Biophysical profile performed by the technologist: breathing (30 sec sustained breathing in 30 minutes): 2 out of 2 movement (3 gross body movements in 30 minutes): 2 out of 2 tone (one episode of kgkmylv-ztaxseeyf-ttrzmfc limb movement): 2 out of 2 Amniotic fluid pocket (2 cm): 2 out of 2 Total score: 8 out of 8 IMPRESSION: 1. Single living fetus in vertex presentation. 2. Biophysical profile 8 out of 8. 3. Normal amniotic fluid index. Reviewed, dictated and finalized at location L. BUILDING SUPERVISOR
--- NOTE | ~2023-05-27 | US_ITS ---
EXAMINATION: US OB BPP wo non-stress DATE: 05/21/2023 12:07 INDICATION: Hypothyroidism. Third trimester. TECHNIQUE: Real-time pelvic ultrasound was performed. COMPARISON: Ultrasound 05/14/2023 FINDINGS: There is a single living fetus in vertex presentation. The placenta is left fundal. heart rate is 139 beats per minute (bpm). Biophysical profile performed by the technologist: breathing (30 sec sustained breathing in 30 minutes): 2 out of 2 movement (3 gross body movements in 30 minutes): 2 out of 2 tone (one episode of wzeksan-rvkyvqhii-bvbgtrt limb movement): 2 out of 2 Amniotic fluid pocket (2 cm): 2 out of 2 Total score: 8 out of 8 IMPRESSION: 1. Single living fetus in vertex presentation. 2. Biophysical profile 8 out of 8. Reviewed, dictated and finalized at location A. TENANCE MECHANIC 2ND SHIFT
[2023-05-27 10:59] VITALS: BP 113/68; PULSE 75
== END 2023-07-21 23:59 | disposition home or self-care (01) ==
LOC: ANHOBOP 10:28
PROVIDERS: Visit Provider Obstetrics & Gynecology
DX: O99.283 Endocrine, nutritional and metabolic diseases complicating pregnancy, third trimester (principal); E03.9 Hypothyroidism, unspecified; Z3A.33 33 weeks gestation of pregnancy
CPT/HCPCS: 59025; 76819

== ENCOUNTER 2023-06-03 09:16 | Inpatient (IN) | payer OTHER, SELFPAY ==
[2023-06-03] VITALS (82 sets, daily range): BP systolic 78–160; BP diastolic 36–132; PULSE 63–191; TEMP 36.3–37.4; O2SAT 100; BMI 43.4
--- NOTE | 2023-06-03 09:16 | LDADM ---
This patient, Yesika Camara, was admitted to Labor/Delivery/Recovery 107 on 06/03/23 at 09:16. Plans for labor, pain management and were discussed with patient. Patient/family oriented to hospital policies and general routines including ID bracelet, bed and alarms, visiting hours, pain management, procedures, bathroom and other care routines, personal items, smoking policy, room service/diet and guest tray routines, security routines, and visiting hours. Patient/Family are encouraged to report perceived risks to care and to ask questions if they do not understand what they are told or what they should do. See OBIX for further documentation.
[2023-06-03 10:10] LABS: Basophils Percent Auto 0.3 % (0.2-1.2); Eosinophils Percent Auto 0.1 % (0-4.4); Hematocrit 39.1 % (37.0-47.0); Hemoglobin 12.2 g/dL (12.0-15.0); Immature Granulocyte Absolute 0.06 K/mm3 (0.00-0.031); Immature Granulocyte Percent A 0.8 % (0-0.5); Lymphocytes Absolute Auto 1.87 K/mm3 (0.9-3.2); Lymphocytes Percent Auto 24.1 % (18.3-44.2); Mean Corpuscular HGB Conc 31.2 g/dl (32-36); Mean Corpuscular Hemoglobin 30.2 pg (26-34); Mean Corpuscular Volume 96.8 fl (80-100); Mean Platelet Volume 9.8 fl (7.4-10.4); Monocytes Absolute Auto 0.4 K/mm3 (0.1-0.6); Monocytes Percent Auto 5.7 % (2.6-8.5); Neutrophils Absolute Auto 5.4 K/mm3 (1.3-6.7); Platelet Count Result 251 k/mm3 (150-375); Red Blood Count 4.04 M/mm3 (4.2-5.4); Red Cell Distribution Width 13.7 % (11.5-14.5); White Blood Count 7.8 K/mm3 (4.5-10.0)
[2023-06-03] MEDS: LACTATED RINGERS 1,000 ML 125 ML IV CONT ×3 (10:15→17:20)
[2023-06-03] MEDS: OXYTOCIN 30 UNITS/NS 500 ML 30 UNITS/500 ML BAG IV CONT (10:15)
[2023-06-03 11:08] LABS: Hepatitis B Surface Antigen Negative (Negative)
[2023-06-03 11:30] LABS: Rapid Plasma Reagin Non-Reactive (NonReactive)
--- NOTE | 2023-06-03 12:19 | PM.IMHP ---
H&P: HPI History of Present Illness Date/Time: 06/03/23 12:19 Chief Complaint: Induction of labor Narrative: Yesika is a 28yo @ 39.2wks admitted for elective IOL. She reports irregular ctx's. No VB or LOF. She has felt good movement. Her is complicated by: - Hypothyroidism on levothyroxine... needs serial US starting at 28wks. - H/o gestational hypertension; ASA 162mg daily - Obesity/PCOS; BMI 42 - Anxiety and depression - Elevated early 1 hour glucose; normal 3 hour - COVID (Jan.)- pt already on ASA and will have serial US - Sterilization requested Review of Systems Constitutional: Constitutional: Denies chills, Denies fever(s) and Denies headache(s) Eyes: Eyes: Denies change in vision ENT: Denies headache(s) Cardiovascular: Cardiovascular: Denies chest pain and Denies dyspnea Respiratory: Respiratory: Denies dyspnea Genitourinary: Genitourinary: Denies abnormal vaginal bleeding and Denies vaginal discharge Neurologic: Denies headache(s) Psychiatric: Psychiatric: Denies anxiety and Denies depression [facility] Past Medical History Medical History Gestational hypertension Hypertension Hypothyroidism Irregular periods Morbid obesity and not yet delivered Surgical History Surgical History H/O gynecological procedure (~02/26/21) mirena insertion , iud expelled itself Family History Family History Mother Hypercholesteremia Hypertension Social History Social History Smoking status: Never smoker Second hand tobacco smoke exposure: No Alcohol intake: never Substance use: never Do You Feel Safe in your Home?: Yes Lack of Transportation: No Lack of Food: Never True Current Housing: I Have Housing Concerned About Future Housing: No Difficulty Paying Gas/Electric Bills: No Difficulty Paying for Meds: No Currently Unemployed: No Education: Associate Degree Difficulty w/ Childcare or Family Care: No Living arrangements: with family Occupation/Education: occupation Additional occupation/education comments: Medical Billing Gender identity (if verbalized by the patient): Female Sexual Orientation (if Verbalized by the Patient): Straight or Heterosexual Spiritual care concerns: No Meds Home Medications and Allergies Home Medications Medication Instructions Recorded Confirmed Type vits no.126-ferrous fum 1 tablet PO HS 01/29/23 06/03/23 History 28 mg iron-folic acid 800 mcg tablet (Classic ) aspirin 81 mg chewable tablet 162 mg PO HS 02/25/23 06/03/23 History levothyroxine 112 mcg tablet 112 mcg PO DAILY 04/22/23 06/03/23 History Allergies Allergy/AdvReac Type Severity Reaction Status Date / Time No Known Allergies Allergy Verified 06/03/23 08:09 Vital Signs Vital Signs - 24 hr 06/03/23 10:12 06/03/23 10:31 06/03/23 10:21 Temperature 97.4 F L Pulse Rate 87 88 Blood Pressure 125/74 132/68 06/03/23 11:01 06/03/23 11:31 06/03/23 12:01 Temperature Pulse Rate 81 93 99 Blood Pressure 135/84 133/60 117/75 06/03/23 12:03 Temperature 97.8 F Pulse Rate Blood Pressure Exam Const: General: cooperative, no acute distress and obese Nutritional Appearance: obese Orientation/consciousness: patient oriented x3 Resp: Effort & Inspection: normal respiratory effort Cardio: Rate: regular rate GI: GI Palp: No abdominal tenderness : Other: FHT's: 140's/ mod patrick/ + accels/ no decels - cat 1 TOCO: irregular ctxs Cervix: 2.5/50/-2 Membranes: AROM, clear 1230 Presentation: cephalic Skin: General skin exam: normal color Neuro: General: patient oriented x3 Extrem: General: normal to inspection Psych: Appearance: grossly normal Affect: normal affect
--- NOTE | 2023-06-03 16:46 | WPDANESEPP ---
Anes - Eval Pre Procedure Procedure: labor epidural Date/Time: 06/03/23 16:46 Preop Diagnosis: labor pain Pre Op Diagnosis: IOL Patient Data Age: 28 Gender: F Height: 1.7 m Weight: 126 kg Last Vital Signs Temp 37.0 C 06/03/23 15:03 Pulse 73 06/03/23 16:31 BP 130/77 06/03/23 16:31 Allergies Allergy/AdvReac Type Severity Reaction Status Date / Time No Known Allergies Allergy Verified 06/03/23 08:09 Home Medications Medication Instructions Recorded Confirmed Type vits no.126-ferrous fum 1 tablet PO HS 01/29/23 06/03/23 History 28 mg iron-folic acid 800 mcg tablet (Classic ) aspirin 81 mg chewable tablet 162 mg PO HS 02/25/23 06/03/23 History levothyroxine 112 mcg tablet 112 mcg PO DAILY 04/22/23 06/03/23 History Laboratory Tests 06/03/23 09:58 WBC 7.8 K/mm3 (4.5-10.0) RBC 4.04 L M/mm3 (4.2-5.4) Hgb 12.2 g/dL (12.0-15.0) Hct 39.1 % (37.0-47.0) MCV 96.8 fl (80-100) MCH 30.2 pg (26-34) MCHC 31.2 L g/dl (32-36) RDW 13.7 % (11.5-14.5) Plt Count 251 k/mm3 (150-375) MPV 9.8 fl (7.4-10.4) Immature Gran % (Auto) 0.8 H % (0-0.5) Neut % (Auto) 69.0 % (45.5-73.1) Lymph % (Auto) 24.1 % (18.3-44.2) [place] % (Auto) 5.7 % (2.6-8.5) Eos % (Auto) 0.1 % (0-4.4) Baso % (Auto) 0.3 % (0.2-1.2) Lymph # (Auto) 1.87 K/mm3 (0.9-3.2) [place] # (Auto) 0.4 K/mm3 (0.1-0.6) Eos # (Auto) 0.0 K/mm3 (0-0.3) Baso # (Auto) 0.0 K/mm3 (0.0-0.1) Abs Immat Gran (auto) 0.06 H K/mm3 (0.00-0.031) Absolute Neuts (auto) 5.4 K/mm3 (1.3-6.7) Absolute Nucleated RBC 0.0 K/mm3 (0.0-0.012) Nucleated RBC % 0.0 % (0.0-0.2) RPR Non-reactive (NonReactive) Hep Bs Antigen Negative (Negative) Blood Type A Positive Antibody Screen Negative Patient hx anesthesia problems: none Family hx anesthesia problems: none Results Review: All pre-operative results and documents have been reviewed as part of the pre-operative evaluation. [facility] Past Medical History Medical History Gestational hypertension Hypertension Hypothyroidism Irregular periods Morbid obesity and not yet delivered Surgical History Surgical History H/O gynecological procedure (~02/26/21) mirena insertion , iud expelled itself Family History Family History Mother Hypercholesteremia Hypertension Social History Social History Smoking status: Never smoker Second hand tobacco smoke exposure: No Alcohol intake: never Substance use: never Do You Feel Safe in your Home?: Yes Lack of Transportation: No Lack of Food: Never True Current Housing: I Have Housing Concerned About Future Housing: No Difficulty Paying Gas/Electric Bills: No Difficulty Paying for Meds: No Currently Unemployed: No Education: Associate Degree Difficulty w/ Childcare or Family Care: No Living arrangements: with family Occupation/Education: occupation Additional occupation/education comments: Medical Billing Gender identity (if verbalized by the patient): Female Sexual Orientation (if Verbalized by the Patient): Straight or Heterosexual Spiritual care concerns: No Exam Day of Procedure 06/03/23 16:46 Patient weight: normal Heart: regular rate and rhythm Lungs: clear to auscultation and normal air movement Airway: Mallampati scale class III Neurological: alert and oriented
--- NOTE | 2023-06-03 18:06 | PM.OBPNLAB ---
Pain Control Date/time seen: 06/03/23 18:06 Pain control: epidural Pelvic Exam Dilation (cm): 5 Effacement (%): 80 station: -2 Amniotic membrane status: Ruptured Contractions Monitor mode: Internal (placed this exam) Contraction frequency: 2 (-3) Contraction pattern: Regular Status status: Category l Assessment and Plan Pitocin rate (mU/min): 16 Assessment: induction ongoing Plan: continuous present management
--- NOTE | 2023-06-03 20:50 | P.PCNOB_ITS ---
OB - Vaginal Delivery Note Procedure Delivery date: 06/03/23 Events: Elective Induction of Labor Induction method: Per Pitocin Protocol Delivery augmentation: Rupture of Membranes Delivery monitor: External FHT and Internal Uterine Route of delivery: Episiotomy description: None Laceration Description: Perineal - 2nd Degree Delivery repair: vicryl Specimen: No Quantitative Blood Loss (ml): 300 Anesthesia type: Epidural Disposition: Floor Complications: No immediate complications [place] Baby Date of : 06/03/23 Time of : 20:30 Weeks of gestation at delivery: 39 (.2) Infant gender: Male Weight (pounds): 7 Weight (ounces): 3 presentation: vertex Placenta delivery description: Expressed Cord Vessel Description: 3 Vessels, Nuchal Cord and Loose score one minute: 9 score five minutes: 9 Narrative: Yesika rapidly progressed to complete dilation with strong desire to push. She pushed for approximately 3 contractions and delivered the head over intact perineum. Nuchal cord was noted but was loose and delivered through. She ea sily delivered the 's shoulders and body without complication. The was immediately placed skin to skin. His mouth and nose were bulb suctioned and cry was then heard. Delayed cord clamping was performed. The umbilical cord was then doubly clamped and cut. The remaining cord blood was collected for typing. With Pitocin running and gentle downward traction on the cord, the placenta delivered without complication. Bimanual massage was performed and good uterine tone with minimal bleeding was noted. She was examined and a small 2nd degree perineal laceration was identified. The laceration was repaired in the normal fashion using 2-0 Vicryl. Slight increase in bleeding was noted and bimanual massage was once again performed with uterine sweep and a small amount of clots were removed. Good uterine tone with minimal bleeding was noted. Sponge, lap, instrument, and needle counts were correct at the end the procedure. Mom and baby were left bonding in the birthing suite in stable condition. [facility] Delivery Billing Delivery Delivery: Delivery Charge
[2023-06-03] MEDS: OXYTOCIN 30 UNITS/NS 500 ML 30 UNITS/500 ML BAG 999 UNITS IV CONT (21:43)
[2023-06-03] MEDS: OXYTOCIN 30 UNITS/NS 500 ML 30 UNITS/500 ML BAG 125 UNITS IV CONT (21:44)
[2023-06-03] MEDS: BENZOCAINE 20% AER SPR (*SP) 56 GM CAN 1 SPRAY TOPICAL (22:34)
[2023-06-03] MEDS: WITCH HAZEL 40 PADS 1 PAD TOPICAL (22:35)
[2023-06-04 00:01] VITALS: BP 101/44; PULSE 77
--- NOTE | 2023-06-04 00:15 | OBPPTRN ---
Patient transferred to post room # via ( ). Support person present. Oriented to unit, room, information board, rooming in, admission packet and security measures. Patient verbalizes understanding.
--- NOTE | 2023-06-04 00:15 | OBPPTRN ---
Patient transferred to post room #290 via wheelchair. Support person present. Oriented to unit, room, information board, rooming in, admission packet and security measures. Patient verbalizes understanding.
[2023-06-04 00:23] VITALS: BP 117/65; PULSE 90; RESP 18; TEMP 36.9; O2SAT 98
[2023-06-04 04:07] VITALS: BP 101/61; PULSE 79; RESP 18; TEMP 36.7; O2SAT 99
[2023-06-04] MEDS: IBUPROFEN 600 MG TABLET PO ×2 (04:28→10:39)
[2023-06-04 05:34] LABS: Hematocrit 33.4 % (37.0-47.0); Hemoglobin 10.4 g/dL (12.0-15.0)
--- NOTE | 2023-06-04 06:34 | PM.OBPNVD ---
OB - PN: Subj Subjective Date/time seen: 06/04/23 06:34 Narrative: PPD#1 Yesika reports doing well today. 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 Her pain is controlled. She is tolerating regular diet, voiding, passing gas, and ambulating without issues. She is breast feeding. She would like her son circumcised. OB - PN: Obj Data Labs 06/04/23 04:26 Labs: Laboratory Results - last 24 hr 06/03/23 06/04/23 09:58 04:26 WBC 7.8 RBC 4.04 L Hgb 12.2 10.4 L Hct 39.1 33.4 L MCV 96.8 MCH 30.2 MCHC 31.2 L RDW 13.7 Plt Count 251 MPV 9.8 Immature Gran % (Auto) 0.8 H Neut % (Auto) 69.0 Lymph % (Auto) 24.1 [place] % (Auto) 5.7 Eos % (Auto) 0.1 Baso % (Auto) 0.3 Lymph # (Auto) 1.87 [place] # (Auto) 0.4 Eos # (Auto) 0.0 Baso # (Auto) 0.0 Abs Immat Gran (auto) 0.06 H Absolute Neuts (auto) 5.4 Absolute Nucleated RBC 0.0 Nucleated RBC % 0.0 RPR Non-reactive Hep Bs Antigen Negative Blood Type A Positive Antibody Screen Negative OB - PN A/P Assessment and Plan (1) (normal spontaneous vaginal delivery): Code(s): O80 - Encounter for full-term uncomplicated delivery Status: Acute Plan day: 1 Plan: routine care Comments: - continue po pain meds - hydration/ambulation encouraged - continue putting baby to breast Time Spent With Patient Time: Total time spent is greater than 50% in coordination of care (as documented) at patient's floor/unit and/or counseling patient: Review of Systems Constitutional: Constitutional: Denies chills, Denies fever(s) and Denies headache(s) Eyes: Eyes: Denies change in vision ENT: Denies dizziness and Denies headache(s) Cardiovascular: Cardiovascular: Denies chest pain, Denies palpitations and Denies dyspnea Respiratory: Respiratory: Denies cough and Denies dyspnea Gastrointestinal: Gastrointestinal: Denies nausea and Denies vomiting Neurologic: Denies dizziness and Denies headache(s) Endocrine: Endocrine: Denies palpitations Exam Const: General: cooperative, comfortable and no acute distress Orientation/consciousness: patient oriented x3 Resp: Effort & Inspection: normal respiratory effort Auscultation: clear to auscultation bilaterally Cardio: Rate: regular rate GI: Inspection: non-distended GI Palp: No abdominal tenderness and Yes Soft to palpation Auscultation: normal bowel sounds : Other: fundus firm Skin: General skin exam: normal color Neuro: General: patient oriented x3 Extrem: General: normal to inspection Psych: Appearance: grossly normal Affect: normal affect Attitude: cooperative
[2023-06-04] MEDS: LEVOTHYROXINE SODIUM 112 MCG TABLET PO (06:49)
[2023-06-04 06:57] VITALS: BP 115/68; PULSE 76; RESP 18; TEMP 37; O2SAT 99
--- NOTE | 2023-06-04 08:06 | WPDANLDPN2 ---
Anes-Prog Note L&D Date/Time: 06/04/23 08:06 Comfortable throughout: labor and delivery Neuraxial method: epidural Epidural/Spinal procedure site: clean & non-tender Neuro status: Neuro function grossly intact. Cardiovascular status: normal Respiratory status: normal Airway patency: baseline Mental status: baseline Post-Op hydration status: normal Vital Signs: Last Vital Signs Temp 37.0 C 06/04/23 06:57 Pulse 76 06/04/23 06:57 Resp 18 06/04/23 06:57 BP 115/68 06/04/23 06:57 Pulse Ox 99 06/04/23 06:57 O2 Del Method Room Air 06/04/23 06:57 Pain score (VAS): 04/15 I/O: Intake & Output 06/03/23 06/04/23 06/04/23 23:59 07:59 15:59 Intake Total 2000 500 Output Total 1000 Balance 2000 -500 Post-procedural complaints: none Patient feedback: Patient satisfied with anesthetic care.
[2023-06-04] MEDS: MULTIVIT/MIN/PREN/FOL AC/IRON TABLET 1 TAB PO (09:15)
[2023-06-04] MEDS: DOCUSATE SODIUM 100 MG CAPSULE PO ×2 (09:15→16:41)
[2023-06-04 11:15] VITALS: BP 116/76; PULSE 94; RESP 20; TEMP 36.6; O2SAT 96
--- NOTE | 2023-06-04 12:41 | PC.NURSE ---
[id number] Introductions were made, then consulted with patient to assess needs related to . Mother led the conversation with her?plans to feed?her infant, the?experience so far, and shared she thinks her left nipple is cracked. Encouraged understanding of the benefits of skin to skin (demonstrating unwrapping infant and placing upright on her chest), stimulating with massage touch, changing positions to encourage wakefulness, how to watch for early feeding cues, responsive feeding, feeding on demand (aiming for 8-12 times in 24 hours, about every 2-3 hours), milk production, building/maintaining a milk supply, duration of feeding, signs of adequate intake/output and how to record on the feeding sheet. Mother works well with her with encouragement and education. Reviewed positioning and ear, shoulder, hip alignment, supporting the breast to facilitate a deep latch, asymmetrical latch (off-center), leading with the chin with a big, open, wide gape and body close to mother. Infant latched optimally to the right, then left breast in football position. Education given to the mother of how to visualize the suckling (with good rocking jaw motion), swallows (dropping of the lower jaw) and how to listen for drinking at the breast (the ka sound) which infant demonstrates. Infant was able to maintain latch without pain to mother protecting the nipple with optimal positioning, latching which appears appropriate with a nice rounded cheek line, big, open wide gape, yet the nipple if flattened after the . There is an appearance of a tight frenulum and tends to hold the tongue in the middle of his mouth. Reviewed comfort measures of healing with a warm, wet washcloth to rinse breast, then leave open to air-dry, good handwashing when or touching the breast/nipples to prevent infection. It was recommended that mother call out for the next feeding to practice a different position. Mother voiced understanding of skin to skin, stimulating with massage touch, responsive feedings, hand expressed colostrum, talking to infant to encourage if it has been 2 -2.5 hours since the start of the last , to call if does not latch, or if there is discomfort with . Resources used for education were facilitated with the visual educational handouts/ tool/mom and baby guide. Inpatient/outpatient resources provided with feeding sheet, name written on the communication board, and the mom/baby guide. Parents voiced understanding of information, demonstrated learning and will call if there is a request for assistance. Reported to the Primary RN. [id number] Mother shared that the left breast was misshaped after the , however; she had no pain. Reviewed the practicing of optimal latching and position changes as an option for protecting the nipple from being flattened in the same place each breastfeed. [id number] - Mother requested assistance. Upon entering the room the mother is holding infant and shared that infant was rooting but now is sleepy. Reminded mother of stimulating techniques and a large stool diaper was found. RN MICHAEL will check back after diaper change and infant placed [id number]. [id number] Mother has [id number] and there are feeding cues visualized. Assisted mother with cross cradle to the right breast. Visualized big, open, wide gape, tongue down with slight elevation, rounded cheek line, and mother states there's no pain. is swallowing with suck/swallow ratios of 3:1 or less. Mother encouraged to feel for changes in comfort, reviewed breaking suction and taking infant off the breast to prevent misshaping. Encouraged going [id number], then offering the other breast. Mother voiced understanding to call for assistance with latching infant, if there's pain, difficulty waking infant to breastfeed, or questions and concerns. Reported to the Primary RN.
[2023-06-04] MEDS: ACETAMINOPHEN 325 MG TABLET 650 MG PO (14:04)
[2023-06-04 20:30] VITALS: BP 111/59; PULSE 75; RESP 16; TEMP 37; O2SAT 99
[2023-06-05] MEDS: ACETAMINOPHEN 325 MG TABLET 650 MG PO (04:45)
[2023-06-05] MEDS: IBUPROFEN 600 MG TABLET PO (04:45)
[2023-06-05 08:18] VITALS: BP 124/82; PULSE 120; RESP 20; TEMP 36.6; O2SAT 99
[2023-06-05] MEDS: LEVOTHYROXINE SODIUM 112 MCG TABLET PO (08:28)
--- NOTE | 2023-06-05 08:33 | PM.OBDSVD ---
DS: Admitting Diagnosis Discharge Date 06/05/23 Admitting Diagnosis Induction of labor DS: Discharge Diagnosis Discharge Diagnosis (1) (normal spontaneous vaginal delivery): Code(s): O80 - Encounter for full-term uncomplicated delivery Status: Acute OB - DS: Summary OB Procedures : Ultrasound OB Procedures Intrapartum: Spontaneous Vag Delivery OB Procedures: : None Peripartum Data Laceration Description: Perineal - 2nd Degree Episiotomy description: None Status at Discharge Functional status at discharge: independent ambulation Overall status at discharge: patient is back to baseline Time Spent with Patient Time attestation: Total time spent providing and/or coordinating discharge services: Exam Const: General: cooperative, comfortable, no acute distress and obese Orientation/consciousness: patient oriented x3 Resp: Effort & Inspection: normal respiratory effort Auscultation: clear to auscultation bilaterally Cardio: Rate: regular rate GI: Inspection: non-distended GI Palp: No abdominal tenderness and Yes Soft to palpation Auscultation: normal bowel sounds : Other: fundus firm Skin: General skin exam: normal color Neuro: General: patient oriented x3 Extrem: General: normal to inspection Psych: Appearance: grossly normal Affect: normal affect Attitude: cooperative DS: Data Data Completed and Pending Labs on day of discharge: Labs from last 24 hours 06/04/23 04:26 Hgb 10.4 L Hct 33.4 L Discharge Plan Discharge Attending physician on discharge: Mel Majano Discharging Clinician: Mel Majano Anticipated Discharge Date/Time: 06/05/23 11:00 Patient Disposition: Home, Self-Care Activity: august shower Diet: regular Patient Instructions: Vaginal Delivery (DC) Stand Alone Forms: General Discharge Information Follow-up/Referrals: Mel Majano MD [Physician] - 4 Weeks Discharge Medications: New acetaminophen 325 mg Tablet 975 mg PO Q6H PRN (Reason: Mild Pain (1-3) Or Headache) Qty: 100 0RF docusate sodium 100 mg Capsule 100 mg PO BID PRN (Reason: Constipation) Qty: 120 0RF ibuprofen 600 mg Tablet 600 mg PO Q6H PRN (Reason: Cramping) Qty: 60 0RF Continued Classic 28 mg iron- 800 mcg tablet 1 tablet PO HS levothyroxine 112 mcg Tablet 112 mcg PO DAILY Discontinued aspirin 81 mg tablet,chewable 162 mg PO HS Date of admission: 06/03/23 09:16 Primary Care Provider: James,Tapan Long Admitting Provider: Mel Majano Attending physician on admission: Mel Majano Condition: Stable
[2023-06-05] MEDS: MULTIVIT/MIN/PREN/FOL AC/IRON TABLET 1 TAB PO (10:54)
--- NOTE | 2023-06-05 11:50 | PC.NURSE ---
[id number] Mother led the conversation with her experience so far, plan to feed her , and her ability to independently latch optimally without discomfort. Reminded mother to use good handwashing technique to prevent infection. Mother is feeding appropriately for growth of infant and understands stimulating to eat if needed. has had appropriate feedings in the last 24 hours meets the outcomes for weight, output, blood sugar and jaundice at this time. Mother states she is confident to continue effectively her at home and is demonstrating effectively on the left breast using the football position with no pain. She voiced when to call for assistance, denies any additional assistance or education at this time. We discussed the importance of protecting the milk supply watching for swallowing. Reinforced understanding of milk production (how hypothyroidism may affect), transition of milk, signs of adequate intake, transition of stool, prevention/relief of engorgement, plugged ducts, mastitis, responsive watching for feeding cues, the different methods of stimulating to breastfeed 1-3 hours after the start of the last feeding, community resources, and when to call a provider using the resource of the mom and baby guide. Mother voiced understanding of the education shared. Reported to the Primary RN.
[2023-06-05 12:01] VITALS: BP 115/61; PULSE 75; RESP 16; TEMP 36.3; O2SAT 99
[2023-06-06 09:30] VITALS: BP 120/75; PULSE 77; RESP 18; TEMP 36.5; O2SAT 99
== END 2023-06-05 12:30 | disposition home or self-care (01) | DRG 807 ==
LOC: ANHLDR 09:39 → ANHOB2 06-04 00:15
PROVIDERS: Admitting Provider Obstetrics & Gynecology; PCP Family Medicine; Visit Provider Obstetrics & Gynecology
DX: O62.3 Precipitate labor (principal); Z37.0 Single live birth; Z3A.39 39 weeks gestation of pregnancy; O69.81X0 Labor and delivery complicated by cord around neck, without compression, not applicable or unspecified; O70.1 Second degree perineal laceration during delivery; O99.284 Endocrine, nutritional and metabolic diseases complicating childbirth; E03.9 Hypothyroidism, unspecified; O99.344 Other mental disorders complicating childbirth; F41.8 Other specified anxiety disorders; O99.214 Obesity complicating childbirth; E66.01 Morbid (severe) obesity due to excess calories; Z86.16 Personal history of COVID-19
CPT/HCPCS: 36415; 85014; 85018; 85025; 86592; 86850; 86900; 86901; 87340; A9270; J2590; J2795; J7120

== ENCOUNTER 2023-07-14 13:27 | Outpatient (CLI) | payer OTHER, SELFPAY ==
[2023-07-14 14:45] LABS: Beta HCG Quantitative < 2.39 mIU/ML
== END 2023-07-14 13:28 | disposition home or self-care (01) ==
LOC: ANHLAB 13:28
PROVIDERS: PCP Family Medicine; Visit Provider Obstetrics & Gynecology
DX: N92.6 Irregular menstruation, unspecified (principal)
CPT/HCPCS: 36415; 84702